=== PATIENT | female | born 1990 | race Caucasian/White ===

== ENCOUNTER 2020-07-10 08:56 | Outpatient (REF) | payer OTHER, SELFPAY ==
--- NOTE | 2020-07-10 | US_ITS ---
EXAMINATION: OBSTETRICAL ULTRASOUND, Follow up HISTORY: 30-year-old at 21.5 weeks of gestation High BMI Follow-up anatomy COMPARISON: 06/26/2020 TECHNIQUE: Real time transabdominal imaging with color and M-mode Doppler. PRESENTATION: Vertex PLACENTA LOCATION: Anterior without previa AMNIOTIC FLUID: Normal MEASUREMENTS: 1. Biparietal Diameter: 5.5 cm; 22.5 wks 2. Head Circumference: 19.6 cm; 21.6 wks 3. Abdominal Circumference: 16.9 cm; 22.0 wks 4. Femur Length: 3.8 cm; 22.0 wks 5. Heart Rate: 149 beats per minute WEIGHT: Estimated weight is 464 grams (1 lbs 0 oz) -- 57 %. Normal views of the third and fourth ventricles, profile, nose/lips, 4ch view, LVOT, RVOT, spine and gender. GESTATIONAL AGE: 1. Established GA: 21.5 wks 2. GA from [facility]: 22.1 wks ESTIMATED DATE OF DELIVERY: 1. Established ELVIS: 11/15/2020 2. ELVIS from [facility]: 11/12/2020 IMPRESSION: 1. A single fetus with appropriate interval growth. 2. Previously limited views of the anatomy were seen as listed above. No abnormalities were noted in visualized anatomy. 3. This completes the survey. I reviewed the limitations of ultrasound in diagnosing aneuploidy and other congenital abnormalities. Amniocentesis was again reviewed and she declined. RECOMMENDATIONS: 1. No further ultrasound has been scheduled at this time. Intermittent the growth evaluation throughout the is suggested as her fundal height evaluation will not be reliable. Thank you very much for this referral. Visiting time 15 minutes. Majority of this visit was spent reviewing the ultrasound findings as well as her care.
== END 2020-07-10 08:57 | disposition home or self-care (01) ==
LOC: HO.US 08:56
PROVIDERS: Visit Provider Specialist
DX: O35.9XX0 Maternal care for (suspected) fetal abnormality and damage, unspecified, not applicable or unspecified (principal); Z3A.21 21 weeks gestation of pregnancy
CPT/HCPCS: 76816

== ENCOUNTER 2020-08-18 08:28 | Outpatient (REF) | payer OTHER, SELFPAY ==
[2020-08-18 10:39] LABS: MANUAL DIFF FLAG NO
[2020-08-18 10:48] LABS: Basophils Percent Auto 0.3 % (0-2); Eosinophils Absolute Auto 0.1 X10*3/uL (0.0-0.4); Eosinophils Percent Auto 0.9 % (0-4); Hematocrit 33.5 % (37-47); Hemoglobin 10.7 g/dl (12.0-16.0); Imm Gran Abs Auto 0.05 X10*3/uL (0.00-0.03); Imm Gran Pct Auto 0.4 % (0.0-0.4); Lymphocytes Absolute Auto 1.9 X10*3/uL (1.2-4.9); Mean Corpuscular HGB Conc 31.9 g/dl (31.0-35.0); Mean Corpuscular Hemoglobin 28.4 pg (27.0-33.0); Mean Corpuscular Volume 88.9 fL (80-98); Mean Platelet Volume 9.5 fL (9.4-12.3); Monocytes Absolute Auto 0.4 X10*3/uL (0.1-1.2); Monocytes Percent Auto 3.5 % (2-11); Neutrophils Absolute Auto 8.8 X10*3/uL (2.0-8.3); Neutrophils Percent Auto 77.9 % (45-73); Platelet Count 258 X10*3/uL (160-400); Red Blood Count 3.77 X10*6/uL (4.20-5.50); Red Cell Distribution Width 14.6 % (11.0-16.0); White Blood Count 11.4 X10*3/uL (4.8-10.8)
[2020-08-18 11:04] LABS: Glucose 1 Hour PP 50gm Dose 163 mg/dL (60-140)
[2020-08-19 08:39] LABS: Syphilis Screen Nonreactive (Nonreactive)
== END 2020-08-18 08:29 | disposition home or self-care (01) ==
LOC: HO.LAB 08:28
PROVIDERS: PCP Family Medicine; Visit Provider Specialist
DX: Z34.90 Encounter for supervision of normal pregnancy, unspecified, unspecified trimester (principal)
CPT/HCPCS: 36415; 85025; 86780

== ENCOUNTER 2020-08-25 09:02 | Outpatient (REF) | payer OTHER, SELFPAY ==
[2020-08-25 10:24] LABS: Glucose Fasting 74 mg/dL (60-99)
[2020-08-25 11:46] LABS: Glucose 1 Hour 192 mg/dL
[2020-08-25 12:30] LABS: Glucose 2 Hour 162 mg/dL
[2020-08-25 13:40] LABS: Glucose 3 Hour 101 mg/dL
== END 2020-08-25 09:03 | disposition home or self-care (01) ==
LOC: HO.LAB 09:02
PROVIDERS: PCP Family Medicine; Visit Provider Specialist
DX: Z34.90 Encounter for supervision of normal pregnancy, unspecified, unspecified trimester (principal)
CPT/HCPCS: 82951

== ENCOUNTER 2020-09-04 10:05 | Outpatient (REF) | payer OTHER, SELFPAY ==
[2020-09-04 10:25] LABS: COVID-19 Test Negative (Negative)
== END 2020-09-04 10:06 | disposition home or self-care (01) ==
LOC: HO.EMPCOV 10:05
PROVIDERS: PCP Family Medicine; Visit Provider Internal Medicine
DX: Z20.828 Contact with and (suspected) exposure to other viral communicable diseases (principal)
CPT/HCPCS: 87635; C9803

== ENCOUNTER 2020-09-29 10:00 | Outpatient (REF) | payer OTHER, SELFPAY ==
[2020-09-29 10:18] LABS: COVID-19 Test Negative (Negative)
== END 2020-09-29 10:01 | disposition home or self-care (01) ==
LOC: HO.EMPCOV 10:00
PROVIDERS: Visit Provider Internal Medicine
DX: Z20.828 Contact with and (suspected) exposure to other viral communicable diseases (principal)
CPT/HCPCS: 87635; C9803

== ENCOUNTER 2020-10-09 08:53 | Outpatient (REF) | payer SELFPAY ==
--- NOTE | 2020-10-09 | US_ITS ---
EXAMINATION: OBSTETRICAL ULTRASOUND, Follow up HISTORY: 30-year-old at 34.5 weeks of gestation Size date discrepancy High BMI COMPARISON: 07/10/2020 TECHNIQUE: Real time transabdominal imaging with color and M-mode Doppler. PRESENTATION: Vertex PLACENTA LOCATION: Anterior without previa AMNIOTIC FLUID: Increased, TOMMIE 27.3 cm MEASUREMENTS: 1. Biparietal Diameter: 8.8 cm; 35.5 wks 2. Head Circumference: 31.5 cm; 35.3 wks 3. Abdominal Circumference: 28.6 cm; 32.5 wks 4. Femur Length: 6.4 cm; 33.1 wks 5. Heart Rate: 127 beats per minute WEIGHT: EFW: 2156 grams (4 lbs 12 oz) -- 12 %. BIOPHYSICAL PROFILE: Motion: 2 Tone: 2 Breathin Amniotic Fluid: 2 Total score: 8/8 Doppler evaluation of the umbilical artery showed the normal SD ratio of 3.0. GESTATIONAL AGE: 1. Established GA: 34.5 wks 2. GA from [facility]: 34.2 wks ESTIMATED DATE OF DELIVERY: 1. Established ELVIS: 11/15/2020 2. ELVIS from A: 11/18/2020 US/US OB follow up IMPRESSION: 1. A single active fetus is in vertex presentation 2. Size equals dates, EFW corresponds to 12 percentile. This represents less than expected interval growth. I reviewed 3. Reassuring biophysical profile 4. Normal umbilical artery Doppler flow Discussion: I reviewed today's ultrasound findings and discussed the limitations of ultrasound and estimating weights. Majority of the fetuses whose EFW corresponds to approximately 10 th percentile or less are constitutionally small but healthy fetuses. Occasionally a fetus may be experiencing placental insufficiency and is not growing to full genetic potential. Unfortunately it is difficult to distinguish the two while the fetus is in utero. I reassured her that there is no sonographic suggestion of placental insufficiency at this time. Thank you very much for this referral. Recommendations: 1. Weekly BPP/NST (scheduled) 2. Repeat growth in 2 weeks. Total time 30 minutes.
--- NOTE | 2020-10-09 | US_ITS ---
EXAMINATION: OBSTETRICAL ULTRASOUND, Follow up HISTORY: 30-year-old at 34.5 weeks of gestation Size date discrepancy High BMI COMPARISON: 07/10/2020 TECHNIQUE: Real time transabdominal imaging with color and M-mode Doppler. PRESENTATION: Vertex PLACENTA LOCATION: Anterior without previa AMNIOTIC FLUID: Increased, TOMMIE 27.3 cm MEASUREMENTS: 1. Biparietal Diameter: 8.8 cm; 35.5 wks 2. Head Circumference: 31.5 cm; 35.3 wks 3. Abdominal Circumference: 28.6 cm; 32.5 wks 4. Femur Length: 6.4 cm; 33.1 wks 5. Heart Rate: 127 beats per minute WEIGHT: EFW: 2156 grams (4 lbs 12 oz) -- 12 %. BIOPHYSICAL PROFILE: Motion: 2 Tone: 2 Breathin Amniotic Fluid: 2 Total score: 8/8 Doppler evaluation of the umbilical artery showed the normal SD ratio of 3.0. GESTATIONAL AGE: 1. Established GA: 34.5 wks 2. GA from [facility]: 34.2 wks ESTIMATED DATE OF DELIVERY: 1. Established ELVIS: 11/15/2020 2. ELVIS from [facility]: 11/18/2020 US/US OB velocimetry umbilcal art IMPRESSION: 1. A single active fetus is in vertex presentation 2. Size equals dates, EFW corresponds to 12 percentile. This represents less than expected interval growth. I reviewed 3. Reassuring biophysical profile 4. Normal umbilical artery Doppler flow Discussion: I reviewed today's ultrasound findings and discussed the limitations of ultrasound and estimating weights. Majority of the fetuses whose EFW corresponds to approximately 10 th percentile or less are constitutionally small but healthy fetuses. Occasionally a fetus may be experiencing placental insufficiency and is not growing to full genetic potential. Unfortunately it is difficult to distinguish the two while the fetus is in utero. I reassured her that there is no sonographic suggestion of placental insufficiency at this time. Thank you very much for this referral. Recommendations: 1. Weekly BPP/NST (scheduled) 2. Repeat growth in 2 weeks. Total time 30 minutes.
== END 2020-10-09 08:54 | disposition home or self-care (01) ==
LOC: HO.US 08:53
PROVIDERS: Visit Provider Specialist
DX: O24.013 Pre-existing type 1 diabetes mellitus, in pregnancy, third trimester (principal); O26.843 Uterine size-date discrepancy, third trimester; Z3A.34 34 weeks gestation of pregnancy
CPT/HCPCS: 76816; 76820

== ENCOUNTER → 2021-04-22 10:40 | Outpatient (BNVA) | payer OTHER, SELFPAY | PROVIDERS: PCP Family Medicine | DX: Z13.89 Encounter for screening for other disorder (principal) | CPT/HCPCS: 36415; 84450; 84460; 86803; 87389; 99204 ==

== ENCOUNTER 2022-04-15 09:19 | Outpatient (REF) | payer OTHER, SELFPAY ==
--- NOTE | ~2022-04-15 | US_ITS ---
EXAMINATION: US OBSTETRICAL CLINICAL INFORMATION: 31-year-old at the 20.3 weeks of gestation High BMI Screening for anomaly COMPARISON: None in this TECHNIQUE: Real-time transabdominal ultrasound was performed using C1-5 megahertz transducer. FINDINGS: A single, active, fetus is seen in transverse presentation. The placenta is posterior without previa, and the amniotic fluid volume is wnl. MEASUREMENTS: 1. Biparietal Diameter: 5.0 cm; 21.2 wks 2. Head Circumference: 19.3 cm; 21.4 wks 3. Abdominal Circumference: 15.8 cm; 21.0 wks 4. Femur Length: 4.1 cm; 23.2 wks 5. Humerus Length: 3.2 cm; 21.0 wks 6. Tibia Length: 3.0 cm; 21.1 wks 7. Ulna Length: 3.3 cm; 22.5 wks 8. Lateral ventricle: 0.8 cm 9. Cerebellum: 2.1 cm; 20.6 wks 10. Cisterna Magna: 0.63 cm 11. Nuchal Fold: 4.4 mm 12. Heart Rate: 155 beats per minute Rt ovary: normal Lt ovary: normal Cervical length 3.1 cm on T/A. GESTATIONAL AGE: 1. Established GA: 20.3 wks 2. GA from [facility]: 21.6 wks ESTIMATED DATE OF DELIVERY: 1. Established ELVIS: 08/30/2022 2. ELVIS from [facility]: 08/20/2022 ANATOMY: The view of the placental cord insertion site was limited. The visualized anatomy includes but not limited to: 1. Cranium: Normal 2. Intracranial anatomy: cavum septum pellucidi, lateral ventricles, choroid plexus, cerebellum, posterior fossa, third and fourth ventricles. 3. face: orbits, lip/palate, profile, nasal bone 4. Heart: four-chamber view of the heart, ventricular septum, foramen ovale, pulmonary vein, left and right outflow tracts, three-vessel view, 3 vessel trachea view, aortic and ductal arches, situs.. 5. Diaphragm: Normal 6. Abdominal wall: Normal 7. Cord Insertion: Normal 8. Spine: Cervical, thoracic, lumbar, sacral. 9. Stomach: Normal size and shape 10. Right Kidney: Normal 11. Left Kidney: Normal 12. 3 vessel cord: Normal 13. Upper extremity: Open hands, fifth digit. 14. Lower extremity: Tibia, fibula, bilateral feet. 15. Bladder: Normal 16. Genitalia: Female, patient aware US/US OB /maternal detail IMPRESSION: 1. Single, living, intrauterine with appropriate biometry. 2. Normal survey. 3. Suboptimal view of the placental cord insertion site. DISCUSSION: I reviewed today's ultrasound findings. We discussed the limitations of ultrasound in diagnosing aneuploidy and other congenital abnormalities. I reviewed the differences between screening test and diagnostic test. Amniocentesis was discussed and declined. She was informed that the baseline incidence of congenital abnormalities is approximately 3-5%. Not all these conditions are diagnosable in utero. RECOMMENDATIONS: 1.. Please follow-up in approximately 3 weeks for growth as her fundal height evaluation will not be reliable and for a follow-up view of the placental cord insertion site. Thank you for allowing me to participate in her care. Total time 30 minutes. The time spent was devoted to counseling the patient about the disease and diagnosis, coordinating care including reviewing her records, pertinent lab data and studies, as well as discussing diagnostic evaluation and workup, plan therapeutic interventions and future disposition of care. This includes any additional research needed to obtain further information in formulating the plan of care of this patient. This note was generated with a voice recognition program. Please excuse any errors which may have been overlooked during my review of this note. Sometimes these errors may affect the content or meaning of a given sentence.
== END 2022-04-15 09:20 | disposition home or self-care (01) ==
LOC: HO.US 09:19
PROVIDERS: Visit Provider Specialist
DX: Z34.92 Encounter for supervision of normal pregnancy, unspecified, second trimester (principal); Z3A.20 20 weeks gestation of pregnancy
CPT/HCPCS: 76811